=== PATIENT | female | born 1960 | race Caucasian/White ===

== ENCOUNTER → 2017-01-20 | Outpatient (CLI) | payer BC ==
[~2017-01-20] VITALS: Ht 165.1 cm; Wt 99.1 kg
[~2017-01-20] MED LIST: CALCIUM 600 PLU1 TAB PO; LACTAID3000 UNIT PO; NATURAL E400 IU PO; SYNTHROID0.05 MG/TA PO; ZYRTEC 10MG10 MG PO
[2017-01-20 11:01] VITALS: BP 140/86; PULSE 80
== END ==
LOC: LIGHT 07:45
DX: E03.9 Hypothyroidism, unspecified (principal); K76.0 Fatty (change of) liver, not elsewhere classified; E66.9 Obesity, unspecified; Z68.36 Body mass index [BMI] 36.0-36.9, adult; M15.0 Primary generalized (osteo)arthritis

== ENCOUNTER → 2017-02-08 | Outpatient (CLI) | payer BC ==
[~2017-02-08] VITALS: Ht 165.1 cm; Wt 97.7 kg
[2017-02-14 09:18] VITALS: BP 148/102; PULSE 72
== END ==
LOC: LIGHT 15:16
DX: Z02.89 Encounter for other administrative examinations (principal)

== ENCOUNTER → 2017-02-16 | Outpatient (CLI) | payer BC | LOC: LIGHT 13:59 | DX: Z02.89 Encounter for other administrative examinations (principal) ==

== ENCOUNTER → 2017-02-24 | Outpatient (CLI) | payer BC ==
[~2017-02-24] VITALS: Ht 165.1 cm; Wt 95.7 kg
[2017-02-24 16:45] VITALS: BP 132/90; PULSE 56
[2017-02-28 08:42] VITALS: BP 132/90; PULSE 56
[2017-03-14 09:24] VITALS: BP 120/80
== END ==
LOC: LIGHT 14:11
DX: E03.9 Hypothyroidism, unspecified (principal); K76.0 Fatty (change of) liver, not elsewhere classified; E66.9 Obesity, unspecified; Z68.36 Body mass index [BMI] 36.0-36.9, adult; Z71.3 Dietary counseling and surveillance; M15.9 Polyosteoarthritis, unspecified

== ENCOUNTER → 2017-04-07 | Outpatient (CLI) | payer BC ==
[~2017-04-07] VITALS: Ht 165.1 cm; Wt 95.3 kg
[2017-04-07 16:50] VITALS: BP 142/94; PULSE 73
[2017-04-25 09:09] VITALS: BP 130/94; PULSE 68
[2017-05-23 09:13] VITALS: BP 134/90; PULSE 68
== END ==
LOC: LIGHT 11:31
DX: E03.9 Hypothyroidism, unspecified (principal); K76.0 Fatty (change of) liver, not elsewhere classified; E66.9 Obesity, unspecified; Z68.35 Body mass index [BMI] 35.0-35.9, adult; Z71.3 Dietary counseling and surveillance; M15.9 Polyosteoarthritis, unspecified

== ENCOUNTER → 2017-05-26 | Outpatient (CLI) | payer BC ==
[~2017-05-26] VITALS: Ht 165.1 cm; Wt 94.3 kg
[2017-06-06 09:49] VITALS: BP 128/70; PULSE 60
== END ==
LOC: LIGHT 05-19 10:29
DX: E03.9 Hypothyroidism, unspecified (principal); K76.0 Fatty (change of) liver, not elsewhere classified; E66.9 Obesity, unspecified; Z71.3 Dietary counseling and surveillance; M15.9 Polyosteoarthritis, unspecified

== ENCOUNTER → 2017-06-30 | Outpatient (CLI) | payer BC ==
[~2017-06-30] VITALS: Ht 165.1 cm; Wt 93.4 kg
[~2017-06-30] MED LIST changes: +PHENTERMINE15 MG PO
[2017-06-30 08:00] VITALS: BP 120/90; PULSE 72
== END ==
LOC: LIGHT 07:52
DX: E03.9 Hypothyroidism, unspecified (principal); K76.0 Fatty (change of) liver, not elsewhere classified; E66.9 Obesity, unspecified; Z71.3 Dietary counseling and surveillance; M15.9 Polyosteoarthritis, unspecified

== ENCOUNTER → 2017-07-28 | Outpatient (CLI) | payer BC ==
[~2017-07-28] VITALS: Ht 165.1 cm; Wt 91.4 kg
[2017-07-28 17:05] VITALS: BP 156/100; PULSE 56
[2017-08-15 09:15] VITALS: BP 134/90; PULSE 88
== END ==
LOC: LIGHT 10:49
DX: E03.9 Hypothyroidism, unspecified (principal); K76.0 Fatty (change of) liver, not elsewhere classified; E66.9 Obesity, unspecified; Z68.33 Body mass index [BMI] 33.0-33.9, adult; Z71.3 Dietary counseling and surveillance; M15.9 Polyosteoarthritis, unspecified

== ENCOUNTER → 2017-09-15 | Outpatient (CLI) | payer BC ==
[~2017-09-15] MED LIST changes: +GLUCOSAMINE & C1 CA2 PO; +MULTIPLE VITAMI1 CAP PO
== END ==
LOC: LIGHT 10:24
DX: E03.9 Hypothyroidism, unspecified (principal); K76.0 Fatty (change of) liver, not elsewhere classified; E66.9 Obesity, unspecified; Z71.3 Dietary counseling and surveillance; M15.9 Polyosteoarthritis, unspecified
CPT/HCPCS: G0463

== ENCOUNTER → 2018-02-23 | Outpatient (CLI) | payer BC ==
[~2018-02-23] VITALS: Ht 165.1 cm; Wt 89.8 kg
[2018-02-23 09:03] VITALS: BP 120/60; PULSE 76
== END ==
LOC: LIGHT 08:55
DX: E03.9 Hypothyroidism, unspecified (principal); K76.0 Fatty (change of) liver, not elsewhere classified; E66.01 Morbid (severe) obesity due to excess calories; Z68.32 Body mass index [BMI] 32.0-32.9, adult; Z71.3 Dietary counseling and surveillance; M15.9 Polyosteoarthritis, unspecified
CPT/HCPCS: G0463

== ENCOUNTER → 2018-06-01 | Outpatient (CLI) | payer BC ==
[~2018-06-01] VITALS: Ht 165.1 cm; Wt 90.9 kg
[2018-06-01 09:58] VITALS: BP 120/74; PULSE 72
== END ==
LOC: LIGHT 04-20 09:24
DX: E03.9 Hypothyroidism, unspecified (principal); M15.9 Polyosteoarthritis, unspecified; E66.9 Obesity, unspecified; Z68.33 Body mass index [BMI] 33.0-33.9, adult; Z71.3 Dietary counseling and surveillance
CPT/HCPCS: G0463

== ENCOUNTER → 2020-05-29 | Outpatient (CLI) | payer BC ==
[~2020-05-29] VITALS: Ht 165.1 cm; Wt 96.4 kg
[~2020-05-29] MED LIST changes: +PRIL40 PO
[2020-05-29 15:52] VITALS: BP 134/80; PULSE 76
== END ==
LOC: LIGHT 14:13
DX: E66.8 Other obesity (principal); Z68.35 Body mass index [BMI] 35.0-35.9, adult; E03.9 Hypothyroidism, unspecified
CPT/HCPCS: G0463

== ENCOUNTER → 2020-07-24 | Outpatient (CLI) | payer BC ==
[~2020-07-24] VITALS: Ht 165.1 cm; Wt 94.3 kg
[2020-07-24 15:47] VITALS: BP 122/86; PULSE 80
== END ==
LOC: LIGHT 10:33
DX: E66.8 Other obesity (principal); Z68.34 Body mass index [BMI] 34.0-34.9, adult; E03.9 Hypothyroidism, unspecified
CPT/HCPCS: G0463

== ENCOUNTER 2020-11-09 01:33 | Emergency (ER) | payer BC ==
[~2020-11-09] VITALS: Ht 165.1 cm; Wt 89.5 kg
[~2020-11-09 01:33] MED LIST changes: +ASPIRIN 81M81 MG/TA2 PO; +COREG 6.256.25 MG/TA PO; +ENTRESTO 24 MG1 EACH PO; +LASIX 20MG TABL20 MG PO; +TOPROL XL 25MG25 MG PO
[2020-11-09 01:36] VITALS: TEMP 98.1
[2020-11-09 01:59] LABS: BASO % 0.2 % (0.0-2.0); EOS # 0.1 (0.0-0.7); EOS % 0.9 % (0-4.0); GRAN # 7.5 (1.4-6.5); GRAN % 77.6 % (42.2-75.2); HEMATOCRIT 45.6 % (37.0-47.0); LYMPH # 1.3 (1.2-3.4); LYMPH % 13.6 % (20.0-51.0); MEAN CELL VOLUME 94 fl (80.0-100.0); MEAN CORPUSCULAR HEMOGLOBIN 31 pg (27.0-31.0); MEAN CORPUSCULAR HGB CONC 33 g/dl (33.0-37.0); MEAN PLATELET VOLUME 9.7 fl (7.4-10.4); MONO # 0.7 (0.1-0.6); MONO % 7.4 % (1.7-9.3); PLATELET COUNT 195 K/mm3 (130-400); RED BLOOD COUNT 4.86 M/mm3 (4.10-5.30); REDCELL DISTRIBUTION WIDTH-CV 12.5 % (11.5-14.5)
[2020-11-09] MEDS ORDERED: ALDACTONE 25MG25 M1 PO (02:07)
[2020-11-09] MEDS ORDERED: TOPROL XL 25MG25 MG PO (02:07)
[2020-11-09] MEDS ORDERED: LASIX 20MG TABL20 MG PO ×2 (02:08→02:10)
[2020-11-09 02:10] LABS: ALANINE AMINOTRANSFERASE 84 U/L (4-34); ALBUMIN 4.3 gm/dL (3.5-5.0); ALKALINE PHOSPHATASE 178 U/L (50-136); ANION GAP 8 mmol/L (7-16); AST,SGOT 70 U/L (15-37); BILIRUBIN,TOTAL 1.3 mg/dL (0.0-1.0); BLOOD UREA NITROGEN 21 mg/dL (7-17); CALCIUM 10.1 mg/dL (8.4-10.2); CARBON DIOXIDE 28 mmol/L (22-30); CHLORIDE 101 mmol/L (98-107); CREATININE, serum 0.94 (0.52-1.25); GLUCOSE 119 mg/dL (74-106); LIPASE 233 U/L (23-300); POTASSIUM 4.2 mmol/L (3.4-5.0); SODIUM 137 mmol/L (137-145); TOTAL PROTEIN 7.2 gm/dL (6.4-8.2)
[2020-11-09] MEDS ORDERED: PRINIVIL2.5 MG PO (02:10)
[2020-11-09] MEDS ORDERED: VITAMIN E1000 U/CAP PO (02:12)
[2020-11-09] MEDS ORDERED: PHARMASSURE ZIN50 MG PO (02:12)
[2020-11-09 02:22] LABS: TROPONIN-I < 0.012 ng/mL (0.000-0.035)
[2020-11-09 04:00] VITALS: BP 136/87; PULSE 96
== END 2020-11-09 04:00 | disposition home or self-care (01) ==
LOC: COL.ER 01:33
PROVIDERS: Family Medicine
DX: R10.9 Unspecified abdominal pain (principal); E03.9 Hypothyroidism, unspecified; I50.9 Heart failure, unspecified; Z79.82 Long term (current) use of aspirin; Z79.890 Hormone replacement therapy
CPT/HCPCS: J1956; Q9967

== ENCOUNTER 2020-12-24 16:53 | Outpatient (RCR) | payer BC ==
[~2020-12-24 16:53] MED LIST changes: +ALDACTONE 25MG25 M1 PO; +PHARMASSURE ZIN50 MG PO; +PRINIVIL2.5 MG PO; +VITAMIN E1000 U/CAP PO
== END 2020-12-26 05:55 | disposition home or self-care (01) ==
LOC: COL.CR 16:53
DX: I50.30 Unspecified diastolic (congestive) heart failure (principal)

== ENCOUNTER 2021-03-23 15:35 | Outpatient (RCR) | payer SELFPAY | END 2021-03-26 | disposition home or self-care (01) | LOC: COL.CR | DX: Z02.89 Encounter for other administrative examinations (principal) ==